=== PATIENT | male | born 1955 | race Caucasian/White ===

== ENCOUNTER 2018-10-07 22:27 | Inpatient (IN) | payer OTHER, MEDICAID ==
[~2018-10-07] VITALS: Ht 172.7 cm; Wt 55.8 kg
--- NOTE | 2018-10-07 23:37 | NUR ---
ADMISSION NOTE Received patient direct admit from [facility] via gurney for ggeneralized weakness. Patient is awake, alert, oriented X 3. Patient oriented to hospital room, call light, toileting, pain management and safety-teach back done. Patient informed that DAWIT Irwin will be primary nurse and that their room number is 103b. Personal belongings checked and Belongings List documented. Call light within reach.
[2018-10-07 23:40] VITALS: BP_SYST 125
--- NOTE | 2018-10-07 23:50 | NUR ---
Dr. Morrison: Spoke with Dr. Morrison over phone, orders obtained for admission. Instructed by MD to input home medications into medication reconciliation, MD stated he will visit patient tomorrow morning and review medications. Orders verified by read-back, RN to input orders.
--- NOTE | 2018-10-08 00:59 | NUR ---
IV PLACEMENT: # 22 gauge angiocath placed to left forearm. Use of asceptic technique. Opsite placed over site. Blood return noted. Flushed with 10 ML of normal saline. No evidence of infiltration noted. IV fluids initiated as ordered. Patient tolerated well.
--- NOTE | 2018-10-08 01:05 | NUR ---
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 Specimen sent to lab.
[2018-10-08 01:14] LABS: ALBUMIN 3.5 g/dL (3.4-4.8); CALCIUM 9.8 mg/dL (8.4-11.0); CREATININE 1.97 mg/dL (0.55-1.30); POTASSIUM 4.9 mmol/L (3.5-5.1); TOTAL BILIRUBIN 0.3 mg/dL (0.0-1.0)
[2018-10-08 01:15] LABS: BASOPHILS # (AUTO) 0.1 K/uL (0.0-0.2); NEUTROPHILS % (AUTO) 80.9 % (40.0-70.0); PLATELET COUNT (AUTO) 315 K/uL (130-430)
[2018-10-08] MEDS: D5/0.45 NS 1,000 ML IV SCH ×2 (01:18→13:14)
[2018-10-08 01:32] LABS: BASOPHILS % (AUTO) 0.6 % (0.0-2.0); EOSINOPHILS % (AUTO) 0.4 % (0.0-4.0); HEMATOCRIT 48.5 % (36-54); HEMOGLOBIN 16.2 g/dL (14.0-18.0); LYMPHOCYTES % (AUTO) 9.2 % (20.5-51.5); MEAN CORPUSCULAR HEMOGLOBIN 33 pg (27-31); MEAN CORPUSCULAR HGB CONC 33 % (32-36); MEAN CORPUSCULAR VOLUME 97 fL (79.0-98.0); MONOCYTES % (AUTO) 8.9 % (1.7-9.3); RED BLOOD CELL COUNT(AUTO) 4.98 MIL/uL (4.2-6.2); RED CELL DISTRIBUTION WIDTH 13.2 % (9.0-15.0); WHITE BLOOD COUNT (AUTO) 11.1 K/uL (4.8-10.8)
--- NOTE | 2018-10-08 04:14 | NUR ---
Rounds: Patient is asleep, no distress. Even and unlabored respiration on room air. IV site to left forearm is patent and benign. Call light with patient. Safety, fall precautions in place. Will continue to monitor.
[2018-10-08] MEDS ORDERED: DOCU250C14 PO (04:49)
[2018-10-08] MEDS ORDERED: BETH25TA10 PO (04:49)
[2018-10-08] MEDS ORDERED: LORA-258 PO (04:49)
[2018-10-08] MEDS ORDERED: TAMS-11 PO (04:49)
[2018-10-08] MEDS ORDERED: LITH300T PO (04:49)
[2018-10-08] MEDS ORDERED: BENZ1TAB7 PO (04:49)
[2018-10-08] MEDS ORDERED: LACT10SO6 PO (04:49)
[2018-10-08] MEDS ORDERED: ARIP5TAB10 PO (04:49)
[2018-10-08] MEDS ORDERED: FINA5TAB3 PO (04:49)
[2018-10-08] MEDS ORDERED: DIVA-72 PO (04:49)
[2018-10-08 06:24] VITALS: BP_SYST 116
--- NOTE | 2018-10-08 06:32 | NUR ---
Closing note: Patient is asleep, no acute distress noted. Even and unlabored breathing on room air. All needs met. Safety and fall precautions in place. Will endorse to dayshift RN.
--- NOTE | 2018-10-08 06:58 | NUR ---
Nutrition Update Ryan Scale 14 noted. Pt admitted for Generalized Weakness Diet: Mechanical soft BMI: 18.9 kg/m2 RD to follow per nutrition care standards.
--- NOTE | 2018-10-08 07:28 | NUR ---
Opening Note: Patient in bed resting. No signs of pain or discomfort at this time. Breathing is even and unlabored, no distress noted. IV patent and intact, running IVF per MD orders, no signs of infiltration noted. Safety precautions in place; bed in lowest position, wheels locked, side rails x3, bed alarm activated and call light within reach. No needs at this time. Will continue to monitor.
[2018-10-08 08:17] VITALS: BP_SYST 145
--- NOTE | 2018-10-08 10:01 | NUR ---
Rounds: Patient in bed resting, repositioned for comfort. No distress noted. Will continue to monitor.
[2018-10-08 11:23] VITALS: BP_SYST 120
--- NOTE | 2018-10-08 12:03 | NUR ---
Rounds: Patient in bed resting. Repositioned for comfort. No signs of pain or discomfort noted. Breathing is even and unlabored with no distress noted. IVF infusing per MD orders with no signs of infiltration. Safety precautions in place and call light within reach. No needs at this time. Will continue to monitor.
[2018-10-08] MEDS ORDERED: CEFEPIME 1 GM in D5W 50 ML IV ONE (13:00)
[2018-10-08 15:33] VITALS: BP_SYST 123
--- NOTE | 2018-10-08 15:52 | NUR ---
Rounds: Patient in bed resting. No signs of pain or discomfort noted. Breathing is even and unlabored with no distress noted. IVF infusing per MD orders with no signs of infiltration. Safety precautions in place and call light within reach. No needs at this time. Will continue to monitor.
[2018-10-08 17:18] LABS: BILIRUBIN,URINE NEGATIVE (NEGATIVE); BLOOD, URINE 3+ (NEGATIVE); CLARITY/URINE CLEAR (CLEAR); COLOR,URINE YELLOW (YELLOW); GLUCOSE,URINE NEGATIVE (NEGATIVE); KETONES,URINE NEGATIVE (NEGATIVE); LEUKOCYTE ESTERASE ,URINE 3+ (NEGATIVE); NITRITE, URINE POSITIVE (NEGATIVE); PROTEIN URINE TRACE (NEGATIVE); UROBILINOGEN,URINE 0.2 (0.2-1.0)
[2018-10-08 17:37] LABS: BACTERIA,URINE MODERATE /HPF (None Seen); WBC,URINE >100 /HPF (0-3)
--- NOTE | 2018-10-08 18:41 | NUR ---
Closing Note: Patient in bed resting. Patient shows no signs of pain or discomfort at this time. Breathing is even and unlabored, no distress noted. IV patent and intact, running IVF per MD orders, no signs of infiltration noted. SCD's in place. Safety precautions in place; bed in lowest position, wheels locked, side rails x3, bed alarm activated and call light within reach. All needs met. Will endorse plan of care to NOC, nurse.
--- NOTE | 2018-10-08 19:15 | NUR ---
Bedside report was received from day shift nurse. Pt is lying in bed fully awake and oriented to his name only. Speech is clear and no c/o pain or discomfort. No acute distress noted at this time. IVF of D5 1/2NS is infusing well at 75ml/hr in LFA without any signs of infiltration at the IV site. Fall and safety precautions are in place. Call light is with pt and bed alarm is on.
[2018-10-08 20:00] VITALS: BP_SYST 126
--- NOTE | 2018-10-08 22:00 | NUR ---
Pt is awake and not in any distress. IVF is infusing well in LFA. Fall and safety precautions are in place. Call light is with pt and bed alarm is on.
--- NOTE | 2018-10-08 23:15 | NUR ---
Pt was screaming out loud while being cleaned up by LOCKER ROOM CLERK. Pt was reassured and told he was being cleaned because he was wet. Pt calmed down and RN assisted LOCKER ROOM CLERK with hygiene and complete linen change. IVF is infusing well in LFA. Call light is with pt and bed alarm on.
--- NOTE | 2018-10-09 01:05 | NUR ---
Pt put his call light on, but would not say anything. When RN got into pt's room and asked pt what he wanted, pt stated he was Claustrophobic and to leave his door wide open. Pt also requested to leave the bright light in his room on. RN left the door wide open and left the bright light on per pt's request. IVF is infusing well in [facility]. Call light is with pt and bed alarm is on.
--- NOTE | 2018-10-09 03:00 | NUR ---
Pt is awake and resting in bed without any distress noted. IVF is infusing well in LFA without any signs of infiltration. Call light is with pt and bed alarm is on.
[2018-10-09 03:11] VITALS: BP_SYST 133
[2018-10-09] MEDS: D5/0.45 NS 1,000 ML IV SCH ×2 (04:07→16:35)
--- NOTE | 2018-10-09 05:00 | NUR ---
Pt is resting comfortably in bed. IVF is infusing well in LFA. Call light is with pt and bed alarm is on.
--- NOTE | 2018-10-09 06:40 | NUR ---
Pt is awake and resting comfortably in bed. No c/o pain or discomfort at this time. All pt's needs were attended to. IVF is infusing well in LFA. Call light is with pt and bed alarm is on. Will endorse to day shift nurse.
[2018-10-09 07:02] LABS: CALCIUM 9.7 mg/dL (8.4-11.0); CREATININE 1.44 mg/dL (0.55-1.30); POTASSIUM 4.2 mmol/L (3.5-5.1)
[2018-10-09 07:07] LABS: BASOPHILS # (AUTO) 0.1 K/uL (0.0-0.2); BASOPHILS % (AUTO) 0.6 % (0.0-2.0); EOSINOPHILS # (AUTO) 0.1 K/uL (0.0-0.4); EOSINOPHILS % (AUTO) 0.7 % (0.0-4.0); HEMATOCRIT 46.7 % (36-54); HEMOGLOBIN 16.2 g/dL (14.0-18.0); LYMPHOCYTES # (AUTO) 0.8 K/uL (1.0-5.5); LYMPHOCYTES % (AUTO) 8.7 % (20.5-51.5); MEAN CORPUSCULAR HEMOGLOBIN 34 pg (27-31); MEAN CORPUSCULAR HGB CONC 35 % (32-36); MEAN CORPUSCULAR VOLUME 98 fL (79.0-98.0); MONOCYTES # (AUTO) 0.8 K/uL (0.0-1.0); MONOCYTES % (AUTO) 8.3 % (1.7-9.3); NEUTROPHILS # (AUTO) 7.5 K/uL (1.8-7.7); NEUTROPHILS % (AUTO) 81.7 % (40.0-70.0); PLATELET COUNT (AUTO) 272 K/uL (130-430); RED BLOOD CELL COUNT(AUTO) 4.78 MIL/uL (4.2-6.2); RED CELL DISTRIBUTION WIDTH 12.8 % (9.0-15.0); WHITE BLOOD COUNT (AUTO) 9.2 K/uL (4.8-10.8)
--- NOTE | 2018-10-09 07:30 | NUR ---
Opening note Patient resting in bed, A/O x 1, no complaints of pain. No SOB noted. IV site patent, intact, and infusing as ordered. No bleeding, no infiltration noted. No nausea, no vomiting noted. Educated patient on the call light system, patient unable to verbalize understanding. On safety, and aspiration precautions, HOB kept elevated, bed in lowest position, bed alarm on, call light within reach. Will continue to monitor.
[2018-10-09 08:38] VITALS: BP_SYST 136
--- NOTE | 2018-10-09 09:30 | NUR ---
Rounds Patient resting in bed at this time, No complaints of pain. No SOB. IV site patent, intact, and infusing as ordered.
[2018-10-09 11:29] VITALS: BP_SYST 120
--- NOTE | 2018-10-09 11:45 | NUR ---
Rounds Patient resting in bed, no complaints of pain, no SOB. Offered patient water, patient drank 2 cups. Offered patient snacks patient declined. No nausea, no vomiting noted. Patient in stable condition.
[2018-10-09] MEDS: CEFEPIME 1 GM in D5W 50 ML IV SCH ×3 (13:21)
--- NOTE | 2018-10-09 13:30 | NUR ---
Rounds Patient resting in bed at this time. No complaints of pain. Patient only ate 25% of lunch, Offered patient water, and juice. Patient drank 2 cups, tolerated well. No nausea, no vomiting noted.
--- NOTE | 2018-10-09 13:59 | NUR ---
Dietitian Recommendations * Recommend mechanical soft diet w/ Ensure Enlive TID (ONS provides an additional 1050 kcal/day and 60 gm protein/day) LP, RD Please refer to Nutrition Assessment for details.
[2018-10-09 15:44] VITALS: BP_SYST 129
--- NOTE | 2018-10-09 15:46 | NUR ---
Rounds Patient resting in bed, no complaints of pain. No SOB. No cough, no congestion noted. No nausea, no vomiting. IV site patent,intact, and infusing as ordered.
--- NOTE | 2018-10-09 18:17 | NUR ---
Closing note Patient resting in bed, A/O x 1, no complaints of pain. No SOB noted. IV site patent, intact, and infusing as ordered. No bleeding, no infiltration noted. No nausea, no vomiting noted. Patient tolerated dinner well. No aspiration noted. On safety, and aspiration precautions, HOB kept elevated, bed in lowest position, bed alarm on, call light within reach. Patient in stable condition. All needs met.
--- NOTE | 2018-10-09 19:20 | NUR ---
PM SHIFT ASSESSMENT Pt awake/alert but confused. Speech is garbled. Pt on room air. IV to left arm with IVF infusing, no signs of infiltration noted. Skin warm and intact. Safety precautions in place, call light within reach. Will continue to monitor.
[2018-10-09 20:00] VITALS: BP_SYST 134
--- NOTE | 2018-10-09 22:30 | NUR ---
CONDOM CATH Placed condom cath to patient per MD order for urine culture. Pt tolerated procedure well. Waiting for urine sample. Will continue to monitor.
--- NOTE | 2018-10-10 00:10 | NUR ---
Pt removed condom catheter, no urine in burnham bag. Will reapply new condom catheter.
[2018-10-10] MEDS: CEFEPIME 1 GM in D5W 50 ML IV SCH ×3 (00:16→23:11)
[2018-10-10 02:23] VITALS: BP_SYST 112
--- NOTE | 2018-10-10 03:00 | NUR ---
Pt removed condom catheter again, lisbeth wet with urine, no urine in burnham bag. Will reapply new condom catheter.
[2018-10-10 05:51] LABS: BASOPHILS # (AUTO) 0.1 K/uL (0.0-0.2); BASOPHILS % (AUTO) 0.6 % (0.0-2.0); EOSINOPHILS # (AUTO) 0.2 K/uL (0.0-0.4); EOSINOPHILS % (AUTO) 2.4 % (0.0-4.0); HEMATOCRIT 47.9 % (36-54); HEMOGLOBIN 15.7 g/dL (14.0-18.0); LYMPHOCYTES # (AUTO) 1.2 K/uL (1.0-5.5); LYMPHOCYTES % (AUTO) 12.7 % (20.5-51.5); MEAN CORPUSCULAR HEMOGLOBIN 32 pg (27-31); MEAN CORPUSCULAR HGB CONC 33 % (32-36); MEAN CORPUSCULAR VOLUME 98 fL (79.0-98.0); MONOCYTES # (AUTO) 0.8 K/uL (0.0-1.0); MONOCYTES % (AUTO) 7.9 % (1.7-9.3); NEUTROPHILS # (AUTO) 7.5 K/uL (1.8-7.7); NEUTROPHILS % (AUTO) 76.4 % (40.0-70.0); PLATELET COUNT (AUTO) 267 K/uL (130-430); RED BLOOD CELL COUNT(AUTO) 4.91 MIL/uL (4.2-6.2); RED CELL DISTRIBUTION WIDTH 12.9 % (9.0-15.0); WHITE BLOOD COUNT (AUTO) 9.8 K/uL (4.8-10.8)
[2018-10-10] MEDS: D5/0.45 NS 1,000 ML IV SCH ×2 (06:05→19:51)
[2018-10-10 06:46] LABS: CALCIUM 9.7 mg/dL (8.4-11.0); CREATININE 1.47 mg/dL (0.55-1.30); POTASSIUM 4.5 mmol/L (3.5-5.1)
--- NOTE | 2018-10-10 06:50 | NUR ---
Urine culture collected from condom cath and sent to lab. Condom catheter removed.
--- NOTE | 2018-10-10 07:30 | NUR ---
Pt care endorsed to dayshift RN at bedside using nursing SBAR.
--- NOTE | 2018-10-10 07:32 | NUR ---
OPENING NOTE Patient resting in the bed. No acute distress. Skin warm and dry to touch. IV intact to LFA, no redness, no swelling, no drainage. On D5 1/2 NS at 75ml/hr, infusing well. Safety measure maintained. Bed locked in low position, side rails up, bed alarm on. Call light within reached. Will continue to monitor.
[2018-10-10 07:50] VITALS: BP_SYST 117
--- NOTE | 2018-10-10 09:45 | NUR ---
ROUND Patient resting in the bed. No acute distress. IV intact, IVF infusing well. Safety measure maintained. Bed locked in low position, side rails up, bed alarm on. Call light within reached. Continue to monitor.
--- NOTE | 2018-10-10 11:35 | NUR ---
RESTING Patient resting in the bed with eyes closed. No acute distress. IV intact, IVF infusing well. Safety measure maintained. Bed locked in low position, side rails up, bed alarm on. Call light within reached. Continue to monitor.
[2018-10-10 12:01] VITALS: BP_SYST 102
--- NOTE | 2018-10-10 14:20 | NUR ---
ROUND Patient resting in the bed comfortable. No acute distress. Respiration even and unlabored. IV intact, IVF infusing well. Safety measure maintained. Call light within reached. Bed locked in low position, side rails up, bed alarm on. Continue to monitor.
--- NOTE | 2018-10-10 15:39 | NUR ---
ROUND Patient resting in the bed. No acute distress. Respiration even and unlabored. Skin warm and dry to touch. IV intact to LFA, IVF infusing well. Safety measure maintained. Call light within reached. Bed locked in low position, side rails up, bed alarm on. Continue to monitor.
--- NOTE | 2018-10-10 16:35 | NUR ---
SEEN AND EXAMINED BY STANLEY CHISHOLM WITH ORDERS.
[2018-10-10 17:50] VITALS: BP_SYST 102
--- NOTE | 2018-10-10 18:42 | NUR ---
CLOSING NOTE Patient resting in the bed. No acute distress. Skin warm and dry to touch. IV intact to LFA, no redness, no swelling, no drainage. On D5 1/2 NS at 75ml/hr, infusing well. All needs met and attended. Safety measure maintained. Bed locked in low position, side rails up, bed alarm on. Call light within reached. Will endorse to night nurse.
[2018-10-10 20:00] VITALS: BP_SYST 117
--- NOTE | 2018-10-10 20:00 | NUR ---
ASSESSMENT Pt alert/ oriented to self only, Speech slurred. Follows simple instruction. IVF infusing left forearm 22ga. no redness or swelling noted @ site. Pt moves slightly in bed.
[2018-10-10] MEDS: MEGESTROL ACETATE 400 MG/10 ML UDC PO SCH (23:11)
[2018-10-11 01:05] VITALS: BP_SYST 107
[2018-10-11 06:57] LABS: BASOPHILS % (AUTO) 0.6 % (0.0-2.0); EOSINOPHILS # (AUTO) 0.1 K/uL (0.0-0.4); EOSINOPHILS % (AUTO) 1.9 % (0.0-4.0); HEMATOCRIT 49.4 % (36-54); HEMOGLOBIN 16.4 g/dL (14.0-18.0); LYMPHOCYTES # (AUTO) 1.2 K/uL (1.0-5.5); MEAN CORPUSCULAR HEMOGLOBIN 32 pg (27-31); MEAN CORPUSCULAR HGB CONC 33 % (32-36); MEAN CORPUSCULAR VOLUME 97 fL (79.0-98.0); MONOCYTES # (AUTO) 0.5 K/uL (0.0-1.0); MONOCYTES % (AUTO) 6.1 % (1.7-9.3); NEUTROPHILS # (AUTO) 5.8 K/uL (1.8-7.7); NEUTROPHILS % (AUTO) 75.4 % (40.0-70.0); PLATELET COUNT (AUTO) 265 K/uL (130-430); RED BLOOD CELL COUNT(AUTO) 5.08 MIL/uL (4.2-6.2); RED CELL DISTRIBUTION WIDTH 13.2 % (9.0-15.0); WHITE BLOOD COUNT (AUTO) 7.7 K/uL (4.8-10.8)
[2018-10-11 07:07] LABS: CALCIUM 9.7 mg/dL (8.4-11.0); CREATININE 1.36 mg/dL (0.55-1.30); POTASSIUM 4.5 mmol/L (3.5-5.1)
--- NOTE | 2018-10-11 07:15 | NUR ---
OPENING NOTE: Received SBAR report and plan of care from night clerk auditor RN. Patient is resting in bed, breathing is even and unlabored, no signs of distress noted, will continue to monitor.
[2018-10-11 07:52] VITALS: BP_SYST 111
[2018-10-11] MEDS: MEGESTROL ACETATE 400 MG/10 ML UDC PO SCH ×2 (08:54→20:37)
[2018-10-11] MEDS: D5/0.45 NS 1,000 ML IV SCH (08:54)
--- NOTE | 2018-10-11 09:00 | NUR ---
ROUNDS: Patient resting in bed, patient remains AOx1 which is his baseline, patient can follow commands and answer simple questions. LT FA # 22 IV site is patent, flushed well, no signs of infection noted, dressing is clean dry and intact. infusion pump connected and running IVF. Patient is slowing no signs of distress of any kind. Call light is within reach, bed is locked in lowest position, will continue to monitor.
--- NOTE | 2018-10-11 09:15 | NUR ---
IV INFILTRATION NOTED IV INFILTRATED ON LEFT FOREARM, NOTED SLIGHT SWELLING, NO REDNESS, APPLIED ICE COMPRESS AND ELEVATED. REMOVED IV CATHETER, CATHETER INTACT, NO ACTIVE BLEEDING, DRESSING IN PLACE.
--- NOTE | 2018-10-11 09:30 | NUR ---
IV PLACEMENT: # 22 gauge angiocath placed to right arm. Use of asceptic technique. Opsite placed over site. Blood return noted. Flushed with 10 cc of normal saline. No evidence of infiltration noted. Patient tolerated. Successful after three attempts.
--- NOTE | 2018-10-11 10:50 | NUR ---
ROUNDS PT IN BED, NO S/S OF DISTRESS OR SOB NOTED, PT HAS NO FACIAL GRIMACING NOTED FOR PAIN, PT IN STABLE CONDITION, RESTING COMFORTABLY, WILL CONTINUE TO MONITOR PT FOR ANY CHANGES.
[2018-10-11 11:29] VITALS: BP_SYST 126
[2018-10-11] MEDS: CEFEPIME 1 GM in D5W 50 ML IV SCH (11:31)
--- NOTE | 2018-10-11 13:05 | NUR ---
ROUNDS: Patient resting comfortably in bed watching TV, no signs of pain noted, no SOB, RT FA IV intact with infusion pump running. No signs of distress noted, call light is within reach, bed locked in lowest position, will continue to monitor.
--- NOTE | 2018-10-11 15:05 | NUR ---
ROUNDS: Patient resting in bed watching TV, no signs of distress noted, no SOB, breathing is even and unlabored. Patient changed and pericare provided. All needs met.
--- NOTE | 2018-10-11 15:09 | NUR ---
ROUNDS DR BEATRIZ ARCHER, AWARE OF PATIENT'S CONDITION, CALLED [facility] TO SEE WHEN THE RESULTS OF THE URINE CULTURE WOULD BE AVAILABLE AND THEY SAID MOST LIKELY TOMORROW, SPOKE WITH
--- NOTE | 2018-10-11 15:46 | NUR ---
RYAN SCALE EVALUATION: Patient evaluated for a low Ryan score of 13. Patient was awake, alert, oriented x 1, and received in a [place] bed with an Isoflex YIMI mattress. Patient is unable to turn in bed independently. Skin is intact. Recommend reposition patient every 2 hours with pillow support and off-load pressure areas with pillows for pressure re-distribution. Elevate, off-load and float bilateral heels with pillows. Use moisture barrier cream on buttocks and other moisture susceptible areas QID and as needed for soiling. Perform skin care and monitor skin integrity Q shift. Place patient on a low air-loss mattress.
[2018-10-11 15:52] VITALS: BP_SYST 109
--- NOTE | 2018-10-11 17:30 | NUR ---
ROUNDS PT IN BED, RESTING COMFORTABLY, TURNED AND REPOSITIONED, PT TOLERATED, PT HAS NO S/S OF DISTRESS OR SOB NOTED, PT IN STABLE CONDITION, WILL CONTINUE TO MONITOR PT FOR ANY CHANGES.
--- NOTE | 2018-10-11 18:42 | NUR ---
CLOSING NOTE: Patient remains AAOx1, with no sign of pain noted. IV to RT FA is patent flushed well, no sign of infection noted, dressing is clean dry and intact, infusion pump connected and running IVF. Patient downgraded to ID from [facility], Continuing with ABX therapy pending urine culture. Patient is resting in bed watching TV, no signs of distress noted, breathing is even and unlabored. Will endorse plan of care to night clerk RN.
--- NOTE | 2018-10-11 19:20 | NUR ---
OPENING NOTE Received patient awake, resting supine on bed with eyes open. He is alert X1 and can state his name in garbled/stuttering tone. IV fluids infusing via IV on RFA. SCD's on, resting on YIMI mattress. Bed alarm is on, bed locked to lowest position, side rails up 3x, and call light w/in reach.
[2018-10-11 20:00] VITALS: BP_SYST 119
--- NOTE | 2018-10-11 20:40 | NUR ---
Medication Late entry d/t patient care. Due medication was given, Megace. Medication education was reviewed with patient and he listens and looks at me, though does not reply understanding. The medication was fed with a spoon and patient swallowed and tolerated.
--- NOTE | 2018-10-11 22:20 | NUR ---
Rounds Patient was positioned for comfort and is in no sign of distress. Presently awake and watching t.v. Safety precautions maintained. Will monitor.
--- NOTE | 2018-10-12 00:11 | NUR ---
Rounds Patient was awake resting in bed, no sign of distress. He was repositioned to right side. He assisted in the process of turning. Safety precautions maintained.
[2018-10-12 00:36] VITALS: BP_SYST 112
[2018-10-12] MEDS: D5/0.45 NS 1,000 ML IV SCH ×2 (00:52→10:25)
[2018-10-12] MEDS: CEFEPIME 1 GM in D5W 50 ML IV SCH ×2 (00:52→11:45)
--- NOTE | 2018-10-12 01:00 | NUR ---
IVF / ANTIBIOTIC IV Fluid bag is empty, replaced with new bag and infusing at 75 ml/hr as ordered. Antibiotic administered, infusing well via IV on RFA and patient tolerating. Patient is presently calm and in no sign of distress.
--- NOTE | 2018-10-12 02:05 | NUR ---
Rounds Patient resting w/ eyes closed. He was momentarily awakened and repositioned to left. He was provided a blanket. IVF infusing as ordered. Call light w/in reach. Will monitor.
--- NOTE | 2018-10-12 04:05 | NUR ---
Rounds Patient positioned for comfort. IVF infusing as ordered. Safety precauitons maintained. Will monitor.
--- NOTE | 2018-10-12 06:30 | NUR ---
closing notes Patient resting in comfortable position resting on YIMI mattress and watching t.v. no sign/sx of distress noted. Safety precautions maintained. Will endorse care to oncoming nurse.
[2018-10-12 07:23] LABS: BASOPHILS % (AUTO) 0.6 % (0.0-2.0); EOSINOPHILS # (AUTO) 0.2 K/uL (0.0-0.4); EOSINOPHILS % (AUTO) 2.1 % (0.0-4.0); HEMATOCRIT 50.7 % (36-54); HEMOGLOBIN 16.8 g/dL (14.0-18.0); LYMPHOCYTES # (AUTO) 1.3 K/uL (1.0-5.5); LYMPHOCYTES % (AUTO) 15.3 % (20.5-51.5); MEAN CORPUSCULAR HEMOGLOBIN 32 pg (27-31); MEAN CORPUSCULAR HGB CONC 33 % (32-36); MEAN CORPUSCULAR VOLUME 97 fL (79.0-98.0); MONOCYTES # (AUTO) 0.6 K/uL (0.0-1.0); MONOCYTES % (AUTO) 7.4 % (1.7-9.3); NEUTROPHILS # (AUTO) 6.6 K/uL (1.8-7.7); NEUTROPHILS % (AUTO) 74.6 % (40.0-70.0); PLATELET COUNT (AUTO) 281 K/uL (130-430); RED BLOOD CELL COUNT(AUTO) 5.23 MIL/uL (4.2-6.2); RED CELL DISTRIBUTION WIDTH 12.8 % (9.0-15.0); WHITE BLOOD COUNT (AUTO) 8.8 K/uL (4.8-10.8)
[2018-10-12 07:38] LABS: CALCIUM 9.2 mg/dL (8.4-11.0); CREATININE 1.24 mg/dL (0.55-1.30); POTASSIUM 4.3 mmol/L (3.5-5.1)
[2018-10-12 08:30] VITALS: BP_SYST 104
--- NOTE | 2018-10-12 09:15 | NUR ---
Rounds Patient resting in bed at this time, No complaints of pain. No SOB. IV site patent, intact, and infusing as ordered.
[2018-10-12] MEDS: MEGESTROL ACETATE 400 MG/10 ML UDC PO SCH (09:38)
--- NOTE | 2018-10-12 11:30 | NUR ---
Rounds Patient resting in bed, no complaints of pain, no SOB. Offered patient water, patient drank 3 cups. Offered patient snacks patient declined. No nausea, no vomiting noted. Patient in stable condition.
[2018-10-12 11:35] VITALS: BP_SYST 107
--- NOTE | 2018-10-12 12:07 | NUR ---
DC PLANNING: CM SPOKE WITH VANDANA ( SITE SURVEYOR @ [facility]) @ . PATIENT IS ACCEPTED BACK AND ROOM NUMBER IS [id number]. TRANSPORTATION HAS BEEN SETUP WITH [facility]/ [facility] @ AND SPOKE WITH MARBELLA (DISPATCH). CHARTER DRIVER TIME IS AT 5PM. CM ATTEMPTED TO CONTACT PUBLIC GUARDIAN ([facility] ) @ . HOWEVER, WAS UNAVAILABLE. CM LEFT A DETAILED MESSAGE REGARDING PATIENT RETURNING BACK TO [facility] TODAY. CM ALSO ATTEMPTED TO CONTACT PATIENT'S SISTER IN LAW (PHILOMENA MARKS) @ . HOWEVER, WAS UNAVAILABLE. CM LEFT A VOICE MESSAGE.
--- NOTE | 2018-10-12 13:30 | NUR ---
Rounds Patient resting in bed, Iv patent, intact and infusing as ordered. No SOB. No complaints of pain. Patient in stable condition.
[2018-10-12 15:30] VITALS: BP_SYST 108
--- NOTE | 2018-10-12 15:45 | NUR ---
Rounds Patient resting in bed, No SOB. No complaints of pain. No nausea, no vomiting. Patient in stable condition.
[2018-10-12 16:08] VITALS: BP_SYST 104
--- NOTE | 2018-10-12 16:50 | NUR ---
Dicharge/PT TRANSFERRED Report given to Don at [facility]. Transfer packet with Transfer Orders and Medication Reconciliation form given to EMT with report. Exitcare provided. [facility] ID band removed, replaced with ID band with pt's name and . IV catheter removed, intact and dressing applied, no active bleeding. All belongings sent with patient. Patient left floor via gurney escorted by EMT in no distress.
== END 2018-10-12 16:50 | DRG 689 ==
LOC: SMU 23:28 → STU 23:41 → SMU 10-11 16:17
PROVIDERS: ADMIT Family Medicine; ATTEND Family Medicine
DX: N39.0 Urinary tract infection, site not specified (principal); N17.0 Acute kidney failure with tubular necrosis; E86.0 Dehydration; F31.9 Bipolar disorder, unspecified; N40.0 Benign prostatic hyperplasia without lower urinary tract symptoms
CPT/HCPCS: 36415; 80048; 80053; 81000-TC; 83735-TC; 84100-TC; 85025; 87081; 87086; G0378; J0692; J7060

== ENCOUNTER 2021-12-27 18:54 | Emergency (ER) | payer OTHER ==
[~2021-12-27] VITALS: Ht 167.6 cm; Wt 74.8 kg
[~2021-12-27 18:54] MED LIST: ARIP5TAB10 PO; ASA81 PO; BENZ1TAB76 PO; BETH25TA10 PO; DIVA-72 PO; DOCU250C14 PO; FINA5TAB3 PO; LACT10SO6 PO; LITH300T PO; LORA-258 PO; ROCPM1 IV; TAMS-11 PO
--- NOTE | 2021-12-27 19:00 | NUR ---
Pt brought by ambulance, A&Ox4, pt presents to ER with abdominal pain and weakness x 1 day, no N/V noted, skin pink and warm, cap refill <3, VSS
--- NOTE | 2021-12-27 19:20 | NUR ---
Dr Islas evaluating patient at bedside
--- NOTE | 2021-12-27 19:30 | NUR ---
Ann martínez in ED - 12/27/21 at 2243 by EDWIN MD at bedside to evaluate Pt.
--- NOTE | 2021-12-27 19:30 | NUR ---
Pt BIBA from SNF, Pt awake and alert AO x2. C/O abdominal pain. Pt is bedbound with a burnham Cathater. No SOB or distress noted. Pt denied N/V, and stated pain to be 4/10. Pt speech is slow and mumbled. PERRLA, skin warm and dry. Cap refill < 3 sec. VSS
[2021-12-27 19:31] VITALS: BP_SYST 100
[2021-12-27 19:59] LABS: BASOPHILS # (AUTO) 0.1 K/uL (0.0-0.2); BASOPHILS % (AUTO) 0.7 % (0.0-2.0); EOSINOPHILS # (AUTO) 0.1 K/uL (0.0-0.4); EOSINOPHILS % (AUTO) 1.3 % (0.0-4.0); HEMATOCRIT 36.2 % (36-54); LYMPHOCYTES # (AUTO) 1.1 K/uL (1.0-5.5); LYMPHOCYTES % (AUTO) 12.8 % (20.5-51.5); MEAN CORPUSCULAR VOLUME 91 fL (79.0-98.0); MONOCYTES # (AUTO) 0.5 K/uL (0.0-1.0); MONOCYTES % (AUTO) 5.7 % (1.7-9.3); NEUTROPHILS # (AUTO) 6.8 K/uL (1.8-7.7); NEUTROPHILS % (AUTO) 79.5 % (40.0-70.0); PLATELET COUNT (AUTO) 339 K/uL (130-430); RED BLOOD CELL COUNT(AUTO) 3.96 MIL/uL (4.2-6.2); WHITE BLOOD COUNT (AUTO) 8.5 K/uL (4.8-10.8)
[2021-12-27 20:08] LABS: CALCIUM 9.1 mg/dL (8.4-11.0); CREATININE 1.25 mg/dL (0.55-1.30)
[2021-12-27 20:33] LABS: TOTAL BILIRUBIN 0.2 mg/dL (0.0-1.0)
[2021-12-27 20:34] LABS: ALBUMIN 2.9 g/dL (3.4-4.8); PHOSPHORUS 3.4 mg/dL (2.7-4.5)
[2021-12-27] MEDS ORDERED: NACL 0.9% 1,000 ML IV ONE (21:30)
--- NOTE | 2021-12-27 22:59 | NUR ---
Report given to Marylou PASTOR
[2021-12-28 02:51] LABS: BILIRUBIN,URINE NEGATIVE (NEGATIVE); BLOOD, URINE 2+ (NEGATIVE); COLOR,URINE YELLOW (YELLOW); GLUCOSE,URINE NEGATIVE (NEGATIVE); KETONES,URINE NEGATIVE (NEGATIVE); LEUKOCYTE ESTERASE ,URINE 3+ (NEGATIVE); NITRITE, URINE POSITIVE (NEGATIVE); PH,URINE 8.5 (5.0-8.0); PROTEIN URINE 1+ (NEGATIVE); UROBILINOGEN,URINE 0.2 (0.2-1.0)
[2021-12-28 03:05] LABS: CLARITY/URINE HAZY (CLEAR)
[2021-12-28 03:09] LABS: BACTERIA,URINE MANY /HPF (None Seen)
[2021-12-28 03:10] LABS: MUCUS,URINE 1+ /LPF (None Seen)
[2021-12-28] MEDS ORDERED: CIPR500T5 PO (04:22)
--- NOTE | 2021-12-28 07:40 | NUR ---
Pt requests Benadryl for "pain in Right leg and hand" Notified MD. Request denied per discharge orders.
--- NOTE | 2021-12-28 09:40 | NUR ---
CALLED MARANDA PEREA LODGE AT [phone] AND GAVE REPORT TO PHAM RN ENDLESS BELT FINISHER, INFORMED HIM PT HAS BEEN DIAGNOSED WITH UTI AND HAS BEEN GIVEN A PRESCRIPTION FOR ABX TREATMENT. PT WILL TRANSFER BACK TO FACILITY AT 1000 VIA AMBULANCE. PT ALSO MADE AWARE.
[2021-12-28 11:23] VITALS: BP_SYST 103
--- NOTE | 2021-12-28 11:28 | NUR ---
PT DISCHARGED TO [facility], PICKED UP BY [facility]. REPORT GIVEN TO DAWIT NATH. Patient given written and verbal discharge instructions and verbalizes understanding. ER MD discussed with patient the results and treatment provided. Patient in stable condition. ID arm band removed. IV catheter removed intact and dressing applied, no active bleeding. Rx of CIPRO given. Patient educated on pain management and to follow up with PMD. Pain Scale 0/10. Opportunity for questions provided and answered. Medication side effect fact sheet provided.
== END 2021-12-28 11:28 | disposition home or self-care (01) ==
LOC: SED 18:54
DX: R10.9 Unspecified abdominal pain (principal); R53.1 Weakness; K21.9 Gastro-esophageal reflux disease without esophagitis; Z79.899 Other long term (current) drug therapy; Z20.822 Contact with and (suspected) exposure to COVID-19
CPT/HCPCS: 99284; 96360; 71045; 87426; 80053; 81000; 82140; 83690; 83735; 84100; 85025; 87086; 36415; 74018; Q9967; J7030